=== PATIENT | female | born 1975 | race Caucasian/White ===

== ENCOUNTER 2016-09-23 21:39 | Emergency (ER) | payer OTHER ==
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
[2016-09-23] MEDS ORDERED: 0.9 % SODIUM CHLORIDE 1,000 ML BAG IV ONE (22:23)
[2016-09-23] MEDS ORDERED: ONDANSETRON HCL IV 4 MG/2 ML VIAL IV ONE (22:23)
[2016-09-23] MEDS ORDERED: MORPHINE SULFATE 5 MG/ML PFS IVP ONE (22:24)
[2016-09-23] MEDS ORDERED: PANTOPRAZOLE SODIUM IV 40 MG VIAL IVP ONE (22:26)
[2016-09-23 22:33] LABS: BASO % 0.2 % (0-6); GRAN % 49.7 % (47-80); HEMATOCRIT 35.7 % (35.0-47.0); HEMOGLOBIN 11.5 gm/dl (11.6-16.0); LYMPH % 39.3 % (16-45); MEAN CELL VOLUME 79.2 fl (81-97); MEAN CORPUSCULAR HGB CONC 32.2 g/dl (32-36); MEAN PLATELET VOLUME 10.8 fl (7.4-10.4); MONO % 8.8 % (0-9); PLATELET COUNT 257 K/uL (130-400); RED BLOOD COUNT 4.51 M/uL (3.80-5.40); RED CELL DISTRIBUTION WIDTH 15.1 % (11.5-14.5); WHITE BLOOD COUNT W/O DIFF 5.5 K/uL (4.2-12.2)
[2016-09-23 22:34] LABS: MEAN CORPUSCULAR HEMOGLOBIN 25.4 pg (27-33)
[2016-09-23 22:43] LABS: ALBUMIN 3.9 gm/dL (3.5-5.0); ALKALINE PHOSPHATASE 62 U/L (38-126); ALT/SGPT 59 U/L (9-52); AST/SGOT 40 U/L (14-36); BILIRUBIN,TOTAL 0.79 mg/dL (0.2-1.3); BLOOD UREA NITROGEN 22 mg/dL (7-17); CREATININE 0.7 mg/dL (0.52-1.04); EST GLOMERULAR FILTRATION RATE > 60 ml/min; GLUCOSE,RANDOM 77 mg/dL (70-110); LIPASE 171 U/L (23-300); TOTAL PROTEIN 6.7 gm/dL (6.3-8.2)
[2016-09-23 22:56] LABS: URINE APPEARANCE CLEAR; URINE BILIRUBIN MODERATE (NEGATIVE); URINE BLOOD LARGE (NEGATIVE); URINE COLOR YELLOW; URINE GLUCOSE (UA) NEGATIVE (NEGATIVE); URINE KETONE TRACE (NEGATIVE); URINE LEUKOCYTE ESTERASE TRACE (NEGATIVE); URINE NITRITE NEGATIVE (NEGATIVE); URINE PROTEIN NEGATIVE (NEGATIVE)
[2016-09-23 23:00] LABS: HCG,QUALITATIVE URINE NEGATIVE (NEGATIVE)
[2016-09-23 23:07] LABS: URINE BACTERIA 2+; URINE MUCUS MODERATE; URINE RBC >50 (NONE SEEN)
[2016-09-24] MEDS ORDERED: ERTAPENEM SODIUM 1 G in 0.9 % SODIUM CHLORIDE 100ML 100 ML IVPB ONE (01:15)
== END 2016-09-24 02:18 | disposition short-term general hospital (02) ==
LOC: ER 21:39
DX: K80.50 Calculus of bile duct without cholangitis or cholecystitis without obstruction (principal); R10.11 Right upper quadrant pain; R11.0 Nausea; R19.7 Diarrhea, unspecified; Z98.84 Bariatric surgery status
CPT/HCPCS: 99285 ×2; 96365; 96375; 83690; 85025; 80076; 80048; 81001; 81025; 74177; Q9967; J1335; J2405; C9113; J7030

== ENCOUNTER 2017-04-20 14:04 | Day surgery (SDC) | payer OTHER ==
[2017-04-20] MEDS ORDERED: PROPOFOL 10 MG/ML VIAL IV ONE (14:05)
[2017-04-20] MEDS ORDERED: LIDOCAINE 2% MDV (20MG/ML) 20ML VIAL IV ONE (14:05)
[2017-04-20 17:04] LABS: % SATURATION 4 % (20-50); FERRITIN 7.64 ng/mL (13-150)
[2017-04-20 17:09] LABS: C-REACTIVE PROTEIN < 0.5 mg/dL (<0.5)
--- NOTE | 2017-04-21 10:30 | Operative Note ---
DATE OF SURGERY: 04/20/2017 OPERATION: COLONOSCOPY with random biopsy. PREOPERATIVE DIAGNOSIS: Abdominal pain and diarrhea. POSTOPERATIVE DIAGNOSES: 1. Tortuous colon. 2. Fair quality colonic prep. 3. Normal terminal ileum. 4. Rule out microscopic colitis. PROCEDURE: After informed consent was obtained from the patient, she was placed in the left lateral decubitus position in the endoscopy suite, sedated and monitored by the department of anesthesia. Digital rectal exam was unremarkable. A well-lubricated GHE780 colonoscope was inserted into the rectum and advanced through a tortuous and a fairly prepped colon to the level of the cecum. Transabdominal pressure was required to intubate the cecal cap. There was particulate matter throughout the colon rinsed and aspirated via the endoscope. Small polyps may have been obscured by the preparation quality. The terminal ileum was inspected and it was unremarkable. The ascending colon, transverse colon, descending colon, sigmoid colon, and rectum were otherwise unremarkable. No polyp, mass lesions, or inflammation was seen. Random biopsies were obtained to rule out microscopic colitis. J-turn views of the anorectum and forward views were unrevealing. The endoscope was straightened, the rectal ampulla deflated, and the endoscope was removed. RECOMMENDATIONS: We will check a CTE to further evaluate her small bowel. In addition, we will check laboratory studies given the fact that she does have elevated liver chemistries of unclear significance. Her multiple tattoos put her at increased risk for hepatitis C. As always, thank you for allowing me to participate in the healthcare of your patients. CC: WILLIAM Calderón
[2017-04-21 15:45] LABS: HEPATITIS B SURFACE ANTIGEN Nonreactive (Nonreactive); HEPATITIS C VIRUS ANTIBODY Nonreactive (Nonreactive)
[2017-04-25 11:57] LABS: ANTINUCLEAR ANTIBODY TITER 1:40 (NEGATIVE)
[2017-04-29 10:26] LABS: ALPHA-1-ANTITRYPSIN 138 mg/dL (110-200); ANTIMITOCHONDRIAL ANTIBODY Negative (Negative); ANTISMOOTH MUSCLE ANTIBODY Positive (Negative); CERULOPLASMIN 29 mg/dL (22-58); t-Transglutaminase (tTG) IgG 0.7 U/mL (Negative); t-Transglutaminase IgA 0.9 U/mL
== END 2017-04-20 15:45 | disposition home or self-care (01) ==
LOC: HOP 14:04
PROVIDERS: ATTEND Internal Medicine Gastroenterology
DX: R10.9 Unspecified abdominal pain (principal); R19.7 Diarrhea, unspecified; F32.9 Major depressive disorder, single episode, unspecified; Z87.898 Personal history of other specified conditions
CPT/HCPCS: 81025; 82728; 83550; 84443; 86038; 86039; 86140